=== PATIENT | female | born 1960 | race Caucasian/White ===

== ENCOUNTER → 2016-12-16 | Outpatient (CLI) | payer BC ==
[~2016-12-16] MED LIST: BENA20TA3 PO; VIBERZI
[2016-12-16 08:11] LABS: BASOPHILS % 0.8 % (0.0-2.0); EOSINOPHILS % 3.3 % (0.0-5.0); HEMATOCRIT. 40.8 % (36.0-48.0); HEMOGLOBIN. 13.8 g/dL (12.0-16.0); MEAN CORPUSCULAR HEMOGLOBIN 29.2 pg (28.0-32.0); MEAN CORPUSCULAR VOLUME 86.3 fL (81.0-99.0); MEAN PLATELET VOLUME 8.9 fl (7.4-10.4); MONOCYTES % 8.8 % (2.0-8.0); NEUTROPHILS % 53.1 % (40.0-76.0); PLATELET 262 x1000/uL (130-400); RED BLOOD CELL COUNT 4.73 mill/uL (4.2-5.4); RED CELL DISTRIBUTION WIDTH 13.9 % (11.6-14.6)
[2016-12-16 08:28] LABS: CARBON DIOXIDE 26 mEq/L (21-32); CHLORIDE 105 mEq/L (98-107); HDL CHOLESTEROL 62 mg/dL (40-59); LDL CHOLESTEROL 123 mg/dL (5-100)
== END | disposition home or self-care (01) ==
LOC: LAB 07:39
PROVIDERS: ATTEND Internal Medicine
DX: I10 Essential (primary) hypertension (principal); E78.5 Hyperlipidemia, unspecified; M26.623 Arthralgia of bilateral temporomandibular joint
CPT/HCPCS: 36415; 70100; 80048; 80061; 80076; 84439; 84443; 85025

== ENCOUNTER → 2016-12-27 | Outpatient (CLI) | payer BC | END | disposition home or self-care (01) | LOC: MAMMO 10:18 | PROVIDERS: ATTEND Internal Medicine | DX: Z12.31 Encounter for screening mammogram for malignant neoplasm of breast (principal) | CPT/HCPCS: G0202 ==

== ENCOUNTER 2017-11-20 11:35 | Emergency (ER) | payer BC ==
[~2017-11-20] VITALS: Ht 170.2 cm; Wt 87.0 kg
[~2017-11-20 11:35] MED LIST changes: +BENA20TA10 PO; -BENA20TA3 PO
[2017-11-20] MEDS ORDERED: ACETAMINOPHEN 500MG TABLET PO ONE (14:45)
[2017-11-20 14:50] VITALS: BP 145/109
== END 2017-11-20 14:53 | disposition home or self-care (01) ==
LOC: ER 12:47
DX: S50.361A Insect bite (nonvenomous) of right elbow, initial encounter (principal); L03.113 Cellulitis of right upper limb; I10 Essential (primary) hypertension; F41.9 Anxiety disorder, unspecified; Z86.14 Personal history of Methicillin resistant Staphylococcus aureus infection; Z90.49 Acquired absence of other specified parts of digestive tract; Z88.6 Allergy status to analgesic agent; W57.XXXA Bitten or stung by nonvenomous insect and other nonvenomous arthropods, initial encounter; Y93.89 Activity, other specified; Y92.89 Other specified places as the place of occurrence of the external cause; Y99.8 Other external cause status
CPT/HCPCS: 99283

== ENCOUNTER → 2018-04-10 | Outpatient (CLI) | payer BC ==
[2018-04-10 08:07] LABS: BASOPHILS % 0.6 % (0.0-2.0); EOSINOPHILS % 2.8 % (0.0-5.0); HEMATOCRIT. 41.4 % (36.0-48.0); HEMOGLOBIN. 13.7 g/dL (12.0-16.0); LYMPHOCYTES % 36.4 % (20.0-50.0); MEAN CORPUSCULAR HEMOGLOBIN 29.1 pg (28.0-32.0); MEAN CORPUSCULAR VOLUME 88.1 fL (81.0-99.0); MEAN PLATELET VOLUME 8.7 fl (7.4-10.4); MONOCYTES % 9.9 % (2.0-8.0); NEUTROPHILS % 50.3 % (40.0-76.0); PLATELET 258 x1000/uL (130-400); RED CELL DISTRIBUTION WIDTH 13.9 % (11.6-14.6)
[2018-04-10 08:40] LABS: CHLORIDE 110 mEq/L (98-107)
[2018-04-10 08:48] LABS: HDL CHOLESTEROL 60 mg/dL (40-59); LDL CHOLESTEROL 118 mg/dL (5-100)
[2018-04-10 08:49] LABS: T4 FREE 1.29 ng/dL (0.76-1.46)
== END | disposition home or self-care (01) ==
LOC: LAB 07:34
PROVIDERS: ATTEND Internal Medicine
DX: E78.5 Hyperlipidemia, unspecified (principal); I10 Essential (primary) hypertension
CPT/HCPCS: 36415; 80061; 80076; 82306; 84439; 84443

== ENCOUNTER 2018-09-29 08:22 | Emergency (ER) | payer BC ==
[~2018-09-29] VITALS: Ht 162.6 cm; Wt 88.0 kg
[2018-09-29 10:05] LABS: BASOPHILS % 0.9 % (0.0-2.0); EOSINOPHILS % 2.8 % (0.0-5.0); HEMOGLOBIN. 13.6 g/dL (12.0-16.0); LYMPHOCYTES % 41.9 % (20.0-50.0); MEAN CORPUSCULAR HEMOGLOBIN 29.8 pg (28.0-32.0); MEAN CORPUSCULAR VOLUME 87.8 fL (81.0-99.0); MEAN PLATELET VOLUME 9.3 fl (7.4-10.4); MONOCYTES % 9.1 % (2.0-8.0); NEUTROPHILS % 45.3 % (40.0-76.0); PLATELET 243 x1000/uL (130-400); RED BLOOD CELL COUNT 4.56 mill/uL (4.2-5.4); RED CELL DISTRIBUTION WIDTH 14.1 % (11.6-14.6)
[2018-09-29 10:12] LABS: CHLORIDE 108 mEq/L (98-107)
[2018-09-29 12:05] VITALS: BP 116/57
== END 2018-09-29 12:05 | disposition home or self-care (01) ==
LOC: ER 08:22
DX: R04.0 Epistaxis (principal); R42 Dizziness and giddiness; F41.9 Anxiety disorder, unspecified; I10 Essential (primary) hypertension; Z90.49 Acquired absence of other specified parts of digestive tract; Z41.1 Encounter for cosmetic surgery; Z98.890 Other specified postprocedural states; Z88.5 Allergy status to narcotic agent; Z87.19 Personal history of other diseases of the digestive system
CPT/HCPCS: 36415; 84484; 93005; 99284

== ENCOUNTER 2018-10-10 08:45 | Emergency (ER) | payer BC ==
[~2018-10-10] VITALS: Ht 162.6 cm; Wt 89.0 kg
[2018-10-10] MEDS ORDERED: SODIUM CHLORIDE 0.9% 1,000 ML IV ONE (09:43)
[2018-10-10 10:18] LABS: BASOPHILS % 0.8 % (0.0-2.0); EOSINOPHILS % 1.8 % (0.0-5.0); HEMATOCRIT. 40.2 % (36.0-48.0); HEMOGLOBIN. 13.5 g/dL (12.0-16.0); LYMPHOCYTES % 32.8 % (20.0-50.0); MEAN CORPUSCULAR HEMOGLOBIN 29.6 pg (28.0-32.0); MEAN CORPUSCULAR VOLUME 88.4 fL (81.0-99.0); MEAN PLATELET VOLUME 9.4 fl (7.4-10.4); MONOCYTES % 8.1 % (2.0-8.0); NEUTROPHILS % 56.5 % (40.0-76.0); PLATELET 258 x1000/uL (130-400); RED BLOOD CELL COUNT 4.55 mill/uL (4.2-5.4); RED CELL DISTRIBUTION WIDTH 13.8 % (11.6-14.6)
[2018-10-10 10:24] LABS: CHLORIDE 108 mEq/L (98-107)
[2018-10-10 10:25] LABS: PROTHROMBIN TIME 10.5 sec (9.6-11.0)
[2018-10-10 12:15] VITALS: BP 124/80
== END 2018-10-10 12:20 | disposition home or self-care (01) ==
LOC: ER 09:22
DX: R04.0 Epistaxis (principal); I10 Essential (primary) hypertension; Z90.49 Acquired absence of other specified parts of digestive tract; Z88.6 Allergy status to analgesic agent
CPT/HCPCS: 36415; 80053; 85025; 85610; 85730; 99283; J7030

== ENCOUNTER → 2018-10-12 | Outpatient (CLI) | payer BC | END | disposition home or self-care (01) | LOC: MAMMO 08:09 | PROVIDERS: ATTEND Internal Medicine | DX: Z12.31 Encounter for screening mammogram for malignant neoplasm of breast (principal) | CPT/HCPCS: 77067 ==

== ENCOUNTER → 2018-10-29 | Outpatient (CLI) | payer BC | END | disposition home or self-care (01) | LOC: CT 11:14 | PROVIDERS: ATTEND Otolaryngology Otolaryngology/Facial Plastic Surgery | DX: M26.609 Unspecified temporomandibular joint disorder, unspecified side (principal); J34.2 Deviated nasal septum; R04.0 Epistaxis | CPT/HCPCS: 70486 ==

== ENCOUNTER 2019-05-19 14:18 | Emergency (ER) | payer BC ==
[~2019-05-19] VITALS: Ht 162.6 cm; Wt 90.0 kg
[2019-05-19] MEDS ORDERED: IBUPROFEN 600MG TABLET PO ONE (16:15)
[2019-05-19 16:40] VITALS: BP 122/72
== END 2019-05-19 16:40 | disposition home or self-care (01) ==
LOC: ER 14:18
DX: J06.9 Acute upper respiratory infection, unspecified (principal); R51 Headache; I10 Essential (primary) hypertension; Z90.49 Acquired absence of other specified parts of digestive tract; Z98.890 Other specified postprocedural states; Z88.6 Allergy status to analgesic agent
CPT/HCPCS: 87804; 99283

== ENCOUNTER 2019-05-21 05:12 | Emergency (ER) | payer BC ==
[~2019-05-21] VITALS: Ht 162.6 cm; Wt 90.0 kg
[2019-05-21] MEDS ORDERED: ONDANSETRON HCL 4MG/2ML INJ IV STA (06:13)
[2019-05-21] MEDS ORDERED: SODIUM CHLORIDE 0.9% 1,000 ML IV ONE (06:13)
[2019-05-21 06:27] LABS: BASOPHILS % 0.6 % (0.0-2.0); HEMATOCRIT. 39.6 % (36.0-48.0); HEMOGLOBIN. 13.5 g/dL (12.0-16.0); LYMPHOCYTES % 21.4 % (20.0-50.0); MEAN CORPUSCULAR HEMOGLOBIN 29.6 pg (28.0-32.0); MEAN CORPUSCULAR VOLUME 86.8 fL (81.0-99.0); MEAN PLATELET VOLUME 9.1 fl (7.4-10.4); MONOCYTES % 13.9 % (2.0-8.0); NEUTROPHILS % 64.1 % (40.0-76.0); PLATELET 206 x1000/uL (130-400); RED BLOOD CELL COUNT 4.56 mill/uL (4.2-5.4); RED CELL DISTRIBUTION WIDTH 14.1 % (11.6-14.6)
[2019-05-21 06:34] LABS: CHLORIDE 105 mEq/L (98-107)
[2019-05-21 06:35] LABS: INR 1.1; PROTHROMBIN TIME 11.4 sec (9.6-11.0)
[2019-05-21 07:51] LABS: CLARITY URINE CLEAR (CLEAR); COLOR URINE YELLOW (YELLOW); KETONES URINE 2+ (NEGATIVE); LEUKOCYTE ESTERASE URINE NEGATIVE (NEGATIVE); NITRITE URINE NEGATIVE (NEGATIVE); OCCULT BLOOD URINE NEGATIVE (NEGATIVE); PROTEIN URINE TRACE (NEGATIVE); UROBILINOGEN URINE 0.2 E.U./dL (0.2-1.0)
[2019-05-21 09:22] VITALS: BP 118/72
== END 2019-05-21 09:20 | disposition home or self-care (01) ==
LOC: ER 05:38
DX: R11.2 Nausea with vomiting, unspecified (principal); R19.7 Diarrhea, unspecified; B34.9 Viral infection, unspecified; E86.0 Dehydration; E87.6 Hypokalemia; R82.4 Acetonuria; I10 Essential (primary) hypertension; Z88.5 Allergy status to narcotic agent
CPT/HCPCS: 36415; 80053; 81003; 81025; 83690; 85025; 85610; 96361; 96374; 99283; J2405; J7030

== ENCOUNTER 2019-08-23 15:37 | Emergency (ER) | payer BC ==
[~2019-08-23] VITALS: Ht 172.7 cm; Wt 95.0 kg
[2019-08-23] MEDS ORDERED: KETOROLAC 60MG/2ML VIAL IM ONE (17:00)
[2019-08-23 17:51] VITALS: BP 138/84
== END 2019-08-23 17:50 | disposition home or self-care (01) ==
LOC: ER 15:37
DX: M25.511 Pain in right shoulder (principal); M19.90 Unspecified osteoarthritis, unspecified site; I10 Essential (primary) hypertension; Z88.6 Allergy status to analgesic agent
CPT/HCPCS: 96372; 99283; J1885

== ENCOUNTER → 2019-09-02 | Outpatient (CLI) | payer BC | END | disposition home or self-care (01) | LOC: MRI 12:29 | PROVIDERS: ATTEND Internal Medicine | DX: M19.011 Primary osteoarthritis, right shoulder (principal); M24.111 Other articular cartilage disorders, right shoulder; M25.411 Effusion, right shoulder; M67.211 Synovial hypertrophy, not elsewhere classified, right shoulder | CPT/HCPCS: 73221 ==

== ENCOUNTER → 2019-09-06 | Outpatient (CLI) | payer BC ==
[2019-09-06 11:07] LABS: BASOPHILS % 0.8 % (0.0-2.0); EOSINOPHILS % 2.1 % (0.0-5.0); HEMATOCRIT. 40.5 % (36.0-48.0); HEMOGLOBIN. 13.9 g/dL (12.0-16.0); LYMPHOCYTES % 39.2 % (20.0-50.0); MEAN CORPUSCULAR HEMOGLOBIN 30.5 pg (28.0-32.0); MEAN CORPUSCULAR VOLUME 88.8 fL (81.0-99.0); MEAN PLATELET VOLUME 8.2 fl (7.4-10.4); MONOCYTES % 7.8 % (2.0-8.0); NEUTROPHILS % 50.1 % (40.0-76.0); PLATELET 277 x1000/uL (130-400); RED BLOOD CELL COUNT 4.56 mill/uL (4.2-5.4); RED CELL DISTRIBUTION WIDTH 14.5 % (11.6-14.6)
[2019-09-06 11:08] LABS: CLARITY URINE CLEAR (CLEAR); COLOR URINE YELLOW (YELLOW); KETONES URINE NEGATIVE (NEGATIVE); LEUKOCYTE ESTERASE URINE NEGATIVE (NEGATIVE); NITRITE URINE NEGATIVE (NEGATIVE); OCCULT BLOOD URINE NEGATIVE (NEGATIVE); PH URINE 6.5 (4.5-8.0); PROTEIN URINE NEGATIVE (NEGATIVE); SPECIFIC GRAVITY URINE 1.016 (1.005-1.030); UROBILINOGEN URINE 0.2 E.U./dL (0.2-1.0)
[2019-09-06 11:14] LABS: CHLORIDE 106 mEq/L (98-107)
[2019-09-06 11:21] LABS: LDL CHOLESTEROL 129 mg/dL (5-100)
[2019-09-06 11:22] LABS: HDL CHOLESTEROL 69 mg/dL (40-59); T4 FREE 1.32 ng/dL (0.76-1.46)
== END | disposition home or self-care (01) ==
LOC: LAB 10:39
PROVIDERS: ATTEND Internal Medicine
DX: I10 Essential (primary) hypertension (principal); E78.5 Hyperlipidemia, unspecified
CPT/HCPCS: 36415; 80053; 80061; 81003; 82248; 84439; 84443; 85025

== ENCOUNTER → 2019-10-06 | Outpatient (CLI) | payer BC | END | disposition home or self-care (01) | LOC: RAD 14:32 | PROVIDERS: ATTEND Orthopaedic Surgery | DX: M19.011 Primary osteoarthritis, right shoulder (principal); M25.511 Pain in right shoulder | CPT/HCPCS: 73030 ==

== ENCOUNTER → 2020-02-10 | Outpatient (CLI) | payer BC ==
[2020-02-10 07:44] LABS: BASOPHILS % 0.8 % (0.0-2.0); EOSINOPHILS % 3.3 % (0.0-5.0); HEMATOCRIT. 40.4 % (36.0-48.0); HEMOGLOBIN. 13.6 g/dL (12.0-16.0); LYMPHOCYTES % 42.4 % (20.0-50.0); MEAN CORPUSCULAR HEMOGLOBIN 29.5 pg (28.0-32.0); MEAN CORPUSCULAR VOLUME 87.4 fL (81.0-99.0); MEAN PLATELET VOLUME 8.5 fl (7.4-10.4); MONOCYTES % 9.4 % (2.0-8.0); NEUTROPHILS % 44.1 % (40.0-76.0); PLATELET 256 x1000/uL (130-400); RED BLOOD CELL COUNT 4.62 mill/uL (4.2-5.4); RED CELL DISTRIBUTION WIDTH 13.3 % (11.6-14.6)
[2020-02-10 07:56] LABS: CHLORIDE 107 mEq/L (98-107)
[2020-02-10 08:04] LABS: LDL CHOLESTEROL 131 mg/dL (5-100)
[2020-02-10 08:06] LABS: HDL CHOLESTEROL 58 mg/dL (40-59)
[2020-02-11 09:06] LABS: HIV SCREEN 4G Non Reactive (Non Reactive); VITAMIN D 25-OH 26.3 ng/mL (30.0-100.0)
[2020-02-14 12:28] LABS: HSV 2 IGG SUPPLEMENTAL TEST POSITIVE (Negative)
[2020-02-15 04:09] LABS: HSV 1 & 2 AB IGM <0.91 Ratio (0.00-0.90)
== END | disposition home or self-care (01) ==
LOC: LAB 06:48
PROVIDERS: ATTEND Internal Medicine
DX: E55.9 Vitamin D deficiency, unspecified (principal); I10 Essential (primary) hypertension; E78.5 Hyperlipidemia, unspecified
CPT/HCPCS: 36415; 80053; 80061; 82248; 82306; 84436; 84443; 85025; 86694; 86695; 86696; 87389

== ENCOUNTER → 2020-02-29 | Outpatient (CLI) | payer BC | END | disposition home or self-care (01) | LOC: LAB 11:08 | PROVIDERS: ATTEND Internal Medicine | DX: Z20.828 Contact with and (suspected) exposure to other viral communicable diseases (principal) | CPT/HCPCS: 87426 ==

== ENCOUNTER → 2020-03-02 | Outpatient (CLI) | payer BC | END | disposition home or self-care (01) | LOC: MAMMO 07:56 | PROVIDERS: ATTEND Internal Medicine | DX: Z12.31 Encounter for screening mammogram for malignant neoplasm of breast (principal) | CPT/HCPCS: 77067 ==

== ENCOUNTER → 2020-08-25 | Outpatient (CLI) | payer BC ==
[2020-08-25 10:28] LABS: BASOPHILS % 0.8 % (0.0-2.0); EOSINOPHILS % 2.6 % (0.0-5.0); HEMATOCRIT. 37.7 % (36.0-48.0); HEMOGLOBIN. 12.9 g/dL (12.0-16.0); LYMPHOCYTES % 39.5 % (20.0-50.0); MEAN CORPUSCULAR HEMOGLOBIN 29.6 pg (28.0-32.0); MEAN CORPUSCULAR VOLUME 86.7 fL (81.0-99.0); MEAN PLATELET VOLUME 8.8 fl (7.4-10.4); MONOCYTES % 8.7 % (2.0-8.0); NEUTROPHILS % 48.4 % (40.0-76.0); PLATELET 269 x1000/uL (130-400); RED BLOOD CELL COUNT 4.35 mill/uL (4.2-5.4)
[2020-08-25 10:32] LABS: CHLORIDE 110 mEq/L (98-107)
[2020-08-25 10:39] LABS: LDL CHOLESTEROL 107 mg/dL (5-100)
[2020-08-25 10:40] LABS: HDL CHOLESTEROL 58 mg/dL (40-59)
[2020-08-26 06:07] LABS: VITAMIN D 25-OH 27.4 ng/mL (30.0-100.0)
== END | disposition home or self-care (01) ==
LOC: LAB 09:58
PROVIDERS: ATTEND Internal Medicine
DX: I10 Essential (primary) hypertension (principal); E78.5 Hyperlipidemia, unspecified
CPT/HCPCS: 36415; 80053; 80061; 82248; 82306; 84436; 84443; 85025

== ENCOUNTER → 2021-04-17 | Outpatient (CLI) | payer BC ==
[2021-04-17 12:09] LABS: BASOPHILS % 0.7 % (0.0-2.0); EOSINOPHILS % 2.2 % (0.0-5.0); HEMATOCRIT. 40.8 % (36.0-48.0); LYMPHOCYTES % 32.8 % (20.0-50.0); MEAN CORPUSCULAR HEMOGLOBIN 29.3 pg (28.0-32.0); MEAN CORPUSCULAR VOLUME 85.5 fL (81.0-99.0); MEAN PLATELET VOLUME 9.1 fl (7.4-10.4); MONOCYTES % 8.2 % (2.0-8.0); NEUTROPHILS % 56.1 % (40.0-76.0); PLATELET 269 x1000/uL (130-400); RED BLOOD CELL COUNT 4.78 mill/uL (4.2-5.4); RED CELL DISTRIBUTION WIDTH 14.1 % (11.6-14.6)
[2021-04-17 12:16] LABS: CHLORIDE 110 mEq/L (98-107)
[2021-04-17 12:25] LABS: HDL CHOLESTEROL 62 mg/dL (40-59); LDL CHOLESTEROL 74 mg/dL (5-100)
[2021-04-18 04:09] LABS: VITAMIN D 25-OH 36.4 ng/mL (30.0-100.0)
== END | disposition home or self-care (01) ==
LOC: MAMMO 10:24
PROVIDERS: ATTEND Internal Medicine
DX: C50.919 Malignant neoplasm of unspecified site of unspecified female breast (principal); R92.2 Inconclusive mammogram; I10 Essential (primary) hypertension; E78.5 Hyperlipidemia, unspecified; R73.9 Hyperglycemia, unspecified; E55.9 Vitamin D deficiency, unspecified
CPT/HCPCS: 36415; 77066; 80048; 80061; 80076; 82306; 83036; 84436; 84443; 85025

== ENCOUNTER → 2022-01-04 | Outpatient (CLI) | payer BC ==
[~2022-01-04] MED LIST changes: +BENA-8 PO; -BENA20TA10 PO
[2022-01-04 10:07] LABS: BASOPHILS % 0.9 % (0.0-2.0); EOSINOPHILS % 2.9 % (0.0-5.0); HEMOGLOBIN. 13.7 g/dL (12.0-16.0); LYMPHOCYTES % 36.1 % (20.0-50.0); MEAN CORPUSCULAR HEMOGLOBIN 29.7 pg (28.0-32.0); MEAN CORPUSCULAR VOLUME 86.6 fL (81.0-99.0); MEAN PLATELET VOLUME 8.6 fl (7.4-10.4); MONOCYTES % 8.8 % (2.0-8.0); NEUTROPHILS % 51.3 % (40.0-76.0); PLATELET 269 x1000/uL (130-400); RED BLOOD CELL COUNT 4.61 mill/uL (4.2-5.4); RED CELL DISTRIBUTION WIDTH 14.1 % (11.6-14.6)
[2022-01-04 10:54] LABS: CHLORIDE 106 mEq/L (98-107)
[2022-01-04 11:09] LABS: HDL CHOLESTEROL 58 mg/dL (40-59); LDL CHOLESTEROL 76 mg/dL (5-100); T4 FREE 1.32 ng/dL (0.76-1.46)
== END | disposition home or self-care (01) ==
LOC: RAD 09:30
PROVIDERS: ATTEND Internal Medicine
DX: M17.0 Bilateral primary osteoarthritis of knee (principal); M76.892 Other specified enthesopathies of left lower limb, excluding foot; M76.891 Other specified enthesopathies of right lower limb, excluding foot; I10 Essential (primary) hypertension; E16.2 Hypoglycemia, unspecified
CPT/HCPCS: 36415; 73560; 80053; 80061; 82248; 82306; 83036; 84439; 84443; 85025

== ENCOUNTER → 2022-08-12 | Outpatient (CLI) | payer BC ==
[~2022-08-12] MED LIST changes: +ATOR20TA65 PO; +HYDR25TA PO; +LOSA100T33 PO
== END | disposition home or self-care (01) ==
LOC: RAD 11:05
PROVIDERS: ATTEND Obstetrics & Gynecology Obstetrics
DX: R93.89 Abnormal findings on diagnostic imaging of other specified body structures (principal); C56.9 Malignant neoplasm of unspecified ovary; N84.0 Polyp of corpus uteri
CPT/HCPCS: 76830; 76856

== ENCOUNTER → 2022-08-14 | Day surgery (SDC) | payer BC ==
[~2022-08-14] VITALS: Ht 162.6 cm; Wt 96.6 kg
[~2022-08-14] MED LIST changes: +FENTANYL CITRATE/PF 50MCG/ML 2ML VIAL IV ONE; +FENTANYL CITRATE/PF 50MCG/ML 2ML VIAL ONE; +LACTATED RINGERS 1,000 ML IV SCH; +LIDOCAINE HCL 1% 10 MG/ML 10ML VIAL ONE; +MIDAZOLAM HCL 2 MG/2 ML VIAL ONE; +ONDANSETRON HCL 4MG/2ML INJ IV PRN; +PROPOFOL 200MG/20ML VIAL IV ONE
[2022-08-14 07:43] LABS: BASOPHILS % 0.5 % (0.0-2.0); EOSINOPHILS % 2.5 % (0.0-5.0); HEMATOCRIT. 39.8 % (36.0-48.0); HEMOGLOBIN. 13.4 g/dL (12.0-16.0); MEAN CORPUSCULAR HEMOGLOBIN 29.4 pg (28.0-32.0); MEAN CORPUSCULAR VOLUME 87.5 fL (81.0-99.0); MEAN PLATELET VOLUME 8.6 fl (7.4-10.4); MONOCYTES % 8.6 % (2.0-8.0); NEUTROPHILS % 58.4 % (40.0-76.0); PLATELET 279 x1000/uL (130-400); RED BLOOD CELL COUNT 4.55 mill/uL (4.2-5.4); RED CELL DISTRIBUTION WIDTH 14.3 % (11.6-14.6)
[2022-08-14 07:50] LABS: UCG SCREEN NEGATIVE
[2022-08-14 07:51] LABS: CHLORIDE 106 mEq/L (98-107)
[2022-08-14 07:53] LABS: CLARITY URINE CLEAR (CLEAR); COLOR URINE YELLOW (YELLOW); KETONES URINE NEGATIVE (NEGATIVE); LEUKOCYTE ESTERASE URINE NEGATIVE (NEGATIVE); NITRITE URINE NEGATIVE (NEGATIVE); OCCULT BLOOD URINE NEGATIVE (NEGATIVE); PH URINE 5.5 (4.5-8.0); PROTEIN URINE NEGATIVE (NEGATIVE); SPECIFIC GRAVITY URINE 1.025 (1.005-1.030)
[2022-08-14 07:54] LABS: PARTIAL THROMBOPLASTIN TIME 30.6 sec (23.4-31.0); PROTHROMBIN TIME 10.8 sec (9.6-11.0)
== END | disposition home or self-care (01) ==
LOC: OR 07:06
PROVIDERS: ATTEND Obstetrics & Gynecology Obstetrics
DX: N84.0 Polyp of corpus uteri (principal); I10 Essential (primary) hypertension; E78.00 Pure hypercholesterolemia, unspecified; M19.90 Unspecified osteoarthritis, unspecified site; G47.30 Sleep apnea, unspecified; F41.9 Anxiety disorder, unspecified; Z79.899 Other long term (current) drug therapy; Z98.890 Other specified postprocedural states; Z88.8 Allergy status to other drugs, medicaments and biological substances; Z72.89 Other problems related to lifestyle; Z79.01 Long term (current) use of anticoagulants
CPT/HCPCS: 36415; 58558; 80048; 81003; 81025; 85025; 85610; 85730; 93005; J2250; J2704; J3010; J3490

== ENCOUNTER → 2022-11-28 | Outpatient (CLI) | payer BC ==
[~2022-11-28] MED LIST changes: -BENA-8 PO; -FENTANYL CITRATE/PF 50MCG/ML 2ML VIAL IV ONE; -FENTANYL CITRATE/PF 50MCG/ML 2ML VIAL ONE; -LACTATED RINGERS 1,000 ML IV SCH; -LIDOCAINE HCL 1% 10 MG/ML 10ML VIAL ONE; -MIDAZOLAM HCL 2 MG/2 ML VIAL ONE; -ONDANSETRON HCL 4MG/2ML INJ IV PRN; -PROPOFOL 200MG/20ML VIAL IV ONE; -VIBERZI
[2022-11-28 10:58] LABS: BASOPHILS % 0.6 % (0.0-2.0); EOSINOPHILS % 2.2 % (0.0-5.0); HEMATOCRIT. 39.5 % (36.0-48.0); HEMOGLOBIN. 13.3 g/dL (12.0-16.0); LYMPHOCYTES % 31.6 % (20.0-50.0); MEAN CORPUSCULAR HEMOGLOBIN 29.1 pg (28.0-32.0); MEAN CORPUSCULAR HGB CONC 33.6 g/dL (31.0-37.0); MEAN CORPUSCULAR VOLUME 86.5 fL (81.0-99.0); MONOCYTES % 8.5 % (2.0-8.0); NEUTROPHILS % 57.1 % (40.0-76.0); PLATELET 271 x1000/uL (130-400); RED BLOOD CELL COUNT 4.56 mill/uL (4.2-5.4); RED CELL DISTRIBUTION WIDTH 14.2 % (11.6-14.6)
[2022-11-28 11:12] LABS: CHLORIDE 106 mEq/L (98-107); INDEX HEMOLYSI 1 (1-3); INDEX ICTERIC 1 (1-4); INDEX LIPEMIC 1 (1-3); POTASSIUM 3.8 mEq/L (3.5-5.1); SODIUM 138 mEq/L (136-145)
[2022-11-28 11:28] LABS: ALANINE AMINOTRANSFERASE 32 IU/L (13-61); ALBUMIN 3.5 g/dL (3.4-5.0); ASPARTATE AMINOTRANSFERASE 17 IU/L (15-37); BILIRUBIN DIRECT 0.2 mg/dL (0.0-0.2); BILIRUBIN TOTAL 0.8 mg/dL (0.1-1.0); CALCIUM 8.8 mg/dL (8.5-10.1); CARBON DIOXIDE 28 mEq/L (21-32); CHOLESTEROL 152 mg/dL (<200); CREATININE 0.6 mg/dL (0.6-1.3); GLUCOSE 93 mg/dL (70-105); HDL CHOLESTEROL 68 mg/dL (40-59); LDL CHOLESTEROL 72 mg/dL (5-100); PROTEIN TOTAL 7.9 g/dL (6.0-8.3); TRIGLYCERIDE 88 mg/dL (0-150); UREA NITROGEN BLOOD 11 mg/dL (7-21)
[2022-11-29 08:09] LABS: T4 THYROXINE 9.1 ug/dL (4.5-12.0); VITAMIN D 25-OH 35.1 ng/mL (30.0-100.0)
== END | disposition home or self-care (01) ==
LOC: LAB 10:11
PROVIDERS: ATTEND Internal Medicine
DX: I10 Essential (primary) hypertension (principal); E55.9 Vitamin D deficiency, unspecified; E78.5 Hyperlipidemia, unspecified
CPT/HCPCS: 36415; 80048; 80061; 80076; 82306; 84436; 84443; 85025

== ENCOUNTER → 2023-05-07 | Outpatient (CLI) | payer BC ==
[2023-05-07 09:21] LABS: CLARITY URINE CLEAR (CLEAR); COLOR URINE YELLOW (YELLOW); GLUCOSE URINE NEGATIVE (NEGATIVE); KETONES URINE NEGATIVE (NEGATIVE); LEUKOCYTE ESTERASE URINE TRACE (NEGATIVE); NITRITE URINE NEGATIVE (NEGATIVE); OCCULT BLOOD URINE NEGATIVE (NEGATIVE); PH URINE 7.5 (4.5-8.0); PROTEIN URINE NEGATIVE (NEGATIVE); SPECIFIC GRAVITY URINE 1.015 (1.005-1.030)
[2023-05-07 09:38] LABS: ALANINE AMINOTRANSFERASE 17 IU/L (10-49); ALBUMIN 4.3 g/dL (3.2-4.8); ASPARTATE AMINOTRANSFERASE 18 IU/L (<34); BILIRUBIN TOTAL 0.9 mg/dL (0.1-1.0); CALCIUM 9.1 mg/dL (8.7-10.4); CARBON DIOXIDE 28 mEq/L (21-32); CHLORIDE 104 mEq/L (98-107); CREATININE 0.6 mg/dL (0.6-1.0); GLUCOSE 92 mg/dL (70-105); POTASSIUM 3.8 mEq/L (3.5-5.1); PROTEIN TOTAL 7.9 g/dL (6.0-8.3); SODIUM 139 mEq/L (136-145); UREA NITROGEN BLOOD 13 mg/dL (9-23)
[2023-05-07 10:32] LABS: HEPATITIS A AB IGM NEGATIVE (Negative); HEPATITIS B CORE AB IGM NEGATIVE (Negative); HEPATITIS B SURFACE ANTIGEN NEGATIVE (Negative); HEPATITIS C AB NON REACTIVE (Neg) (Negative)
[2023-05-07 12:31] LABS: SQUAMOUS EPITHELIAL CELL URINE 1+ /lpf (RARE/1+)
[2023-05-07 12:32] LABS: MUCUS URINE TRACE /lpf (< = 2+)
[2023-05-07 12:35] LABS: BACTERIA URINE TRACE; HYALINE CASTS URINE 0-5 /lpf; RBC URINE NONE SEEN /hpf (0-2); WBC URINE 0-2 /hpf (0-2)
== END | disposition home or self-care (01) ==
LOC: LAB 09:01
PROVIDERS: ATTEND Internal Medicine
DX: I10 Essential (primary) hypertension (principal); E11.9 Type 2 diabetes mellitus without complications; E55.9 Vitamin D deficiency, unspecified; E78.5 Hyperlipidemia, unspecified; E03.9 Hypothyroidism, unspecified
CPT/HCPCS: 36415; 80053; 81003; 83036; 84443; 86705; 86709; 87340

== ENCOUNTER → 2023-05-08 | Outpatient (CLI) | payer BC | END | disposition home or self-care (01) | LOC: MAMMO 04-27 08:27 | PROVIDERS: ATTEND Internal Medicine | DX: Z12.31 Encounter for screening mammogram for malignant neoplasm of breast (principal) | CPT/HCPCS: 77063; 77067 ==

== ENCOUNTER → 2023-08-04 | Outpatient (CLI) | payer BC | END | disposition home or self-care (01) | LOC: CT 09:30 | PROVIDERS: ATTEND Otolaryngology Otolaryngology/Facial Plastic Surgery | DX: J32.0 Chronic maxillary sinusitis (principal); J34.2 Deviated nasal septum | CPT/HCPCS: 70486 ==

== ENCOUNTER 2023-10-08 12:17 | Emergency (ER) | payer BC ==
[~2023-10-08] VITALS: Ht 162.6 cm; Wt 82.0 kg
[2023-10-08 12:35] VITALS: BP 149/75; TEMP 97.7; O2SAT 100
[2023-10-08 12:37] VITALS: PULSE 98; RESP 16
[2023-10-08] MEDS ORDERED: MECL-217 MT (13:08)
[2023-10-08] MEDS: MECLIZINE 12.5MG TABLET PO ONE (13:26)
== END 2023-10-08 13:26 | disposition home or self-care (01) ==
LOC: ER 12:17
DX: R55 Syncope and collapse (principal); R10.9 Unspecified abdominal pain; Z88.5 Allergy status to narcotic agent
CPT/HCPCS: 99282; J8597

== ENCOUNTER → 2023-11-21 | Outpatient (CLI) | payer BC ==
[~2023-11-21] MED LIST changes: +MECL-217 MT
[2023-11-21 10:42] LABS: CHLORIDE 105 mEq/L (98-107); POTASSIUM 4.1 mEq/L (3.5-5.1); SODIUM 137 mEq/L (136-145)
[2023-11-21 10:43] LABS: CALCIUM 8.9 mg/dL (8.7-10.4); CARBON DIOXIDE 29 mEq/L (21-32)
[2023-11-21 10:48] LABS: CREATININE 0.7 mg/dL (0.6-1.0); GLUCOSE 84 mg/dL (70-105); TRIGLYCERIDE 83 mg/dL (0-150); UREA NITROGEN BLOOD 21 mg/dL (9-23)
[2023-11-21 10:49] LABS: LDL CHOLESTEROL 148 mg/dL (5-100)
[2023-11-21 10:50] LABS: ALANINE AMINOTRANSFERASE 66 IU/L (10-49); ALBUMIN 4.3 g/dL (3.2-4.8); ASPARTATE AMINOTRANSFERASE 36 IU/L (<34); BILIRUBIN TOTAL 0.5 mg/dL (0.1-1.0); CHOLESTEROL 207 mg/dL (<200); HDL CHOLESTEROL 59 mg/dL (>65); PROTEIN TOTAL 7.5 g/dL (6.0-8.3)
== END | disposition home or self-care (01) ==
LOC: LAB 09:18
PROVIDERS: ATTEND Internal Medicine
DX: I10 Essential (primary) hypertension (principal); E55.9 Vitamin D deficiency, unspecified; E78.5 Hyperlipidemia, unspecified
CPT/HCPCS: 36415; 80053; 80061; 82306

== ENCOUNTER → 2024-02-27 | Outpatient (CLI) | payer BC ==
[2024-02-27 12:55] LABS: BASOPHILS % 0.7 % (0.0-2.0); EOSINOPHILS % 2.2 % (0.0-5.0); HEMATOCRIT. 41.7 % (36.0-48.0); HEMOGLOBIN. 13.6 g/dL (12.0-16.0); LYMPHOCYTES % 35.5 % (20.0-50.0); MEAN CORPUSCULAR HEMOGLOBIN 29.7 pg (28.0-32.0); MEAN CORPUSCULAR HGB CONC 32.6 g/dL (31.0-37.0); MEAN CORPUSCULAR VOLUME 91.1 fL (81.0-99.0); MEAN PLATELET VOLUME 8.6 fl (7.4-10.4); MONOCYTES % 9.3 % (2.0-8.0); NEUTROPHILS % 52.3 % (40.0-76.0); PLATELET 288 x1000/uL (130-400); RED BLOOD CELL COUNT 4.58 mill/uL (4.2-5.4); RED CELL DISTRIBUTION WIDTH 14.3 % (11.6-14.6); WHITE BLOOD COUNT 8.7 x1000/uL (4.5-11.0)
[2024-02-27 13:03] LABS: CHLORIDE 105 mEq/L (98-107); POTASSIUM 3.9 mEq/L (3.5-5.1); SODIUM 140 mEq/L (136-145)
[2024-02-27 13:05] LABS: CALCIUM 9.6 mg/dL (8.7-10.4); CARBON DIOXIDE 26 mEq/L (21-32); T4 FREE 1.26 ng/dL (0.89-1.76); THYROID STIMULATING HORMONE 1.27 uIU/mL (0.55-4.78)
[2024-02-27 13:10] LABS: CREATININE 0.6 mg/dL (0.6-1.0); GLUCOSE 92 mg/dL (70-105); TRIGLYCERIDE 81 mg/dL (0-150); UREA NITROGEN BLOOD 11 mg/dL (9-23)
[2024-02-27 13:11] LABS: ALANINE AMINOTRANSFERASE 32 IU/L (10-49); ASPARTATE AMINOTRANSFERASE 29 IU/L (<34); LDL CHOLESTEROL 88 mg/dL (5-100)
[2024-02-27 13:12] LABS: ALBUMIN 4.3 g/dL (3.2-4.8); BILIRUBIN TOTAL 0.7 mg/dL (0.1-1.0); CHOLESTEROL 175 mg/dL (<200); HDL CHOLESTEROL 69 mg/dL (>65); PROTEIN TOTAL 7.5 g/dL (6.0-8.3)
[2024-02-27 13:18] LABS: VITAMIN B12 SERUM 126 pg/mL (211-911)
== END | disposition home or self-care (01) ==
LOC: LAB 12:02
PROVIDERS: ATTEND Internal Medicine
DX: I10 Essential (primary) hypertension (principal); E11.9 Type 2 diabetes mellitus without complications; E55.9 Vitamin D deficiency, unspecified; E03.9 Hypothyroidism, unspecified; E78.5 Hyperlipidemia, unspecified
CPT/HCPCS: 36415; 80053; 80061; 82607; 84439; 84443; 85025

== ENCOUNTER → 2024-03-04 | Outpatient (CLI) | payer BC | END | disposition home or self-care (01) | LOC: US 08:26 | PROVIDERS: ATTEND Internal Medicine | DX: R10.11 Right upper quadrant pain (principal); Z90.49 Acquired absence of other specified parts of digestive tract | CPT/HCPCS: 76705 ==

== ENCOUNTER 2024-06-07 14:23 | Emergency (ER) | payer BC ==
[~2024-06-07] VITALS: Ht 162.6 cm; Wt 84.1 kg
[2024-06-07 14:38] VITALS: O2SAT 100
[2024-06-07] MEDS ORDERED: ONDA-239 PO (14:59)
[2024-06-07] MEDS ORDERED: MECL-217 MT (14:59)
[2024-06-07] MEDS ORDERED: ONDANSETRON 4MG ODT PO ONE (15:00)
[2024-06-07] MEDS ORDERED: MECLIZINE 25MG TABLET PO ONE (15:00)
[2024-06-07 15:12] VITALS: BP 120/65; PULSE 55; RESP 18; TEMP 36.9; O2SAT 100
== END 2024-06-07 15:18 | disposition home or self-care (01) ==
LOC: ER 14:23
DX: R42 Dizziness and giddiness (principal); R11.2 Nausea with vomiting, unspecified; I10 Essential (primary) hypertension; M19.90 Unspecified osteoarthritis, unspecified site; Z90.49 Acquired absence of other specified parts of digestive tract; Z79.899 Other long term (current) drug therapy
CPT/HCPCS: 99283

== ENCOUNTER → 2024-06-24 | Outpatient (CLI) | payer BC ==
[~2024-06-24] MED LIST changes: +ONDA-239 PO
[2024-06-24 13:26] LABS: BASOPHILS % 0.8 % (0.0-2.0); EOSINOPHILS % 2.1 % (0.0-5.0); HEMATOCRIT. 39.8 % (36.0-48.0); HEMOGLOBIN. 13.4 g/dL (12.0-16.0); MEAN CORPUSCULAR HEMOGLOBIN 29.7 pg (28.0-32.0); MEAN CORPUSCULAR HGB CONC 33.8 g/dL (31.0-37.0); MEAN CORPUSCULAR VOLUME 87.8 fL (81.0-99.0); MONOCYTES % 8.8 % (2.0-8.0); NEUTROPHILS % 50.3 % (40.0-76.0); PLATELET 251 x1000/uL (130-400); RED BLOOD CELL COUNT 4.53 mill/uL (4.2-5.4); RED CELL DISTRIBUTION WIDTH 13.8 % (11.6-14.6); WHITE BLOOD COUNT 6.4 x1000/uL (4.5-11.0)
[2024-06-24 13:27] LABS: CHLORIDE 106 mEq/L (98-107); SODIUM 140 mEq/L (136-145)
[2024-06-24 13:28] LABS: CARBON DIOXIDE 27 mEq/L (21-32)
[2024-06-24 13:29] LABS: CALCIUM 9.8 mg/dL (8.7-10.4)
[2024-06-24 13:33] LABS: CREATININE 0.5 mg/dL (0.6-1.0); GLUCOSE 103 mg/dL (70-105)
[2024-06-24 13:34] LABS: UREA NITROGEN BLOOD 17 mg/dL (9-23)
[2024-06-24 13:35] LABS: ALANINE AMINOTRANSFERASE 17 IU/L (10-49); ALBUMIN 4.2 g/dL (3.2-4.8); ASPARTATE AMINOTRANSFERASE 18 IU/L (<34)
[2024-06-24 13:36] LABS: BILIRUBIN TOTAL 0.8 mg/dL (0.1-1.0); PROTEIN TOTAL 7.5 g/dL (6.0-8.3)
[2024-06-24 13:38] LABS: T4 FREE 1.24 ng/dL (0.89-1.76); THYROID STIMULATING HORMONE 1.21 uIU/mL (0.55-4.78); VITAMIN B12 SERUM 830 pg/mL (211-911)
== END | disposition home or self-care (01) ==
LOC: MAMMO 12:41
PROVIDERS: ATTEND Internal Medicine
DX: Z12.31 Encounter for screening mammogram for malignant neoplasm of breast (principal); R92.323 Mammographic fibroglandular density, bilateral breasts; I10 Essential (primary) hypertension; E11.9 Type 2 diabetes mellitus without complications; E03.9 Hypothyroidism, unspecified; E78.5 Hyperlipidemia, unspecified; E53.9 Vitamin B deficiency, unspecified; Z98.82 Breast implant status
CPT/HCPCS: 36415; 77063; 77067; 80053; 82607; 83036; 84439; 84443; 85025

== ENCOUNTER 2024-08-05 14:35 | Emergency (ER) | payer BC ==
[~2024-08-05] VITALS: Ht 165.1 cm; Wt 81.0 kg
[2024-08-05 14:45] VITALS: O2SAT 97
[2024-08-05] MEDS: METOCLOPRAMIDE HCL 10MG TABLET PO ONE (16:09)
[2024-08-05] MEDS: DIPHENHYDRAMINE 25MG CAPSULE PO ONE (16:09)
[2024-08-05 16:29] LABS: BASOPHILS % 0.7 % (0.0-2.0); EOSINOPHILS % 2.5 % (0.0-5.0); HEMATOCRIT. 38.8 % (36.0-48.0); HEMOGLOBIN. 12.9 g/dL (12.0-16.0); LYMPHOCYTES % 32.2 % (20.0-50.0); MEAN CORPUSCULAR HEMOGLOBIN 29.5 pg (28.0-32.0); MEAN CORPUSCULAR HGB CONC 33.4 g/dL (31.0-37.0); MEAN CORPUSCULAR VOLUME 88.4 fL (81.0-99.0); MEAN PLATELET VOLUME 8.6 fl (7.4-10.4); MONOCYTES % 9.6 % (2.0-8.0); PLATELET 260 x1000/uL (130-400); RED BLOOD CELL COUNT 4.39 mill/uL (4.2-5.4); WHITE BLOOD COUNT 6.7 x1000/uL (4.5-11.0)
[2024-08-05 16:34] LABS: GLUCOSE URINE NEGATIVE (NEGATIVE); KETONES URINE NEGATIVE (NEGATIVE); LEUKOCYTE ESTERASE URINE NEGATIVE (NEGATIVE); NITRITE URINE NEGATIVE (NEGATIVE); OCCULT BLOOD URINE NEGATIVE (NEGATIVE); PH URINE 7.5 (4.5-8.0); PROTEIN URINE NEGATIVE (NEGATIVE); SPECIFIC GRAVITY URINE 1.009 (1.005-1.030); UROBILINOGEN URINE 0.2 E.U./dL (0.2-1.0)
[2024-08-05 16:38] LABS: CHLORIDE 105 mEq/L (98-107); POTASSIUM 3.6 mEq/L (3.5-5.1); PROTHROMBIN TIME 10.8 sec (9.6-11.0); SODIUM 140 mEq/L (136-145)
[2024-08-05 16:39] LABS: CALCIUM 8.7 mg/dL (8.7-10.4); CARBON DIOXIDE 27 mEq/L (21-32)
[2024-08-05 16:44] LABS: CREATININE 0.7 mg/dL (0.6-1.0); GLUCOSE 103 mg/dL (70-105); UREA NITROGEN BLOOD 17 mg/dL (9-23)
[2024-08-05 16:50] LABS: COLOR URINE STRAW (YELLOW)
[2024-08-05 16:52] LABS: BACTERIA URINE NONE SEEN; CLARITY URINE CLEAR (CLEAR); RBC URINE NONE SEEN /hpf (0-2); SQUAMOUS EPITHELIAL CELL URINE NONE SEEN /lpf (RARE/1+); WBC URINE NONE SEEN /hpf (0-2)
[2024-08-05 18:14] VITALS: BP 132/59; PULSE 62; RESP 16; TEMP 36.8; O2SAT 99
== END 2024-08-05 18:17 | disposition home or self-care (01) ==
LOC: ER 14:35
DX: H81.399 Other peripheral vertigo, unspecified ear (principal); I10 Essential (primary) hypertension; Z79.899 Other long term (current) drug therapy; Z90.49 Acquired absence of other specified parts of digestive tract
CPT/HCPCS: 99284; 70450; 80048; 81003; 85025; 85610; 36415; 72125; Q0163; J8597